=== PATIENT | male | born 2000 | race Caucasian/White ===

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

== ENCOUNTER → 2021-12-23 17:31 | Outpatient (CLI) | payer MEDICAID, SELFPAY ==
--- NOTE | 2021-12-23 | DI.RAD_ITS ---
Exam(s) XR FOOT LT COMPLETE EXAM: XR FOOT LT COMPLETE CLINICAL HISTORY: Pain in LT foot TECHNIQUE: COMPARISON: No exams were available for comparison FINDINGS: Three views were obtained. There is no evidence of acute fracture or dislocation. IMPRESSION: RADIATION DOSE DELIVERED: Total DLP
--- NOTE | 2021-12-23 18:15 | DI.VRAD_ITS ---
PROCEDURE INFORMATION: Exam: XR Left Foot Exam date and time: 12/23/2021 5:50 PM Age: 21 years old Clinical indication: Other: Left foot pain, patient dropped heavy boiler on foot TECHNIQUE: Imaging protocol: Radiologic exam of the Left foot. Views: 3 or more views. COMPARISON: No relevant prior studies available. FINDINGS: Bones/joints: No fracture or dislocation. Soft tissues: Mild soft tissue swelling over the dorsum of the foot. No soft tissue gas. No foreign body. IMPRESSION: 1. No fracture or dislocation. 2. Dorsal soft tissue swelling. No gas or foreign body. Dictated and Authenticated by: Roberto Alvarez MD. Ordering:KAMRAN Key MD
== END ==
PROVIDERS: PCP Nurse Practitioner Family; Visit Provider Physician Assistant Medical
DX: M79.672 Pain in left foot (principal)
CPT/HCPCS: 73630

== ENCOUNTER 2022-06-13 19:14 | Emergency (ER) | payer MEDICAID, SELFPAY ==
[2022-06-13 19:17] VITALS: BP 125/80; PULSE 102; RESP 20; TEMP 36.6; O2SAT 99
[2022-06-13] MEDS: Ondansetron O.D.T. 4 MG TABEF PO (19:37)
[2022-06-13 20:05] LABS: Abs Immature Grans 0.03 10^3/uL (0.0-0.06); Absolute Basophil Count 0.04 10^3/uL (0.0-0.2); Absolute Eosinophil Count 0.17 10^3/uL (0.0-0.7); Absolute Lymphocyte Count 1.12 10^3/uL (1.2-3.4); Absolute Monocyte Count 0.37 10^3/uL (0.1-0.8); Absolute Neutrophil Count 7.59 10^3/uL (1.2-6.7); Basophils % 0.4; Eosinophils % 1.8; HCT 45.9 % (40.0-50.0); Immature Grans % 0.3; MCH 31.5 pg (27.0-33.0); MCHC 34.9 % (32.0-36.0); MCV 90 fL (80-95); MPV 8.3 fL (8.0-11.0); Neutrophils % 81.5; Platelet Count 245 10^3/uL (130-400); RBC 5.08 10^6/uL (4.36-5.78); RDW 12.1 % (11.8-14.1); RDW-SD 40.1 fL; WBC 9.32 10^3/uL (4.4-10.8)
[2022-06-13 20:26] LABS: ALT 26 U/L (16-63); AST 23 U/L (15-37); Albumin 4.2 g/dL (3.4-5.0); Alkaline Phosphatase 98 U/L (46-116); Anion Gap 9.5 mmol/L (3-11); BUN 14 mg/dL (7-18); Bilirubin, Total 0.8 mg/dL (0.2-1.0); CO2 23.5 mmol/L (21.0-32.0); CREATININE 0.8 mg/dL (0.70-1.30); Calcium 9.1 mg/dL (8.5-10.1); Chloride 102 mmol/L (98-107); Estimated GFR 129.13 (mL/min/1.73m2); Glucose 93 mg/dL (74-106); Lipase 43 U/L (73-393); Potassium 3.6 mmol/L (3.5-5.1); Sodium 135 mmol/L (136-145); Total Protein 7.8 g/dL (6.4-8.2)
[2022-06-13 21:11] LABS: Bilirubin Small (Negative); Blood Negative (Negative); Clarity Cloudy (Clear); Glucose Negative (Negative); Ketones 15 mg/dL (Negative); Leukocyte Esterase Negative (Negative); Nitrite Negative (Negative)
--- NOTE | 2022-06-13 21:17 | W.ED.GENAD ---
Discharge Plan Disposition Patient Disposition: Home Condition: Good Discharge Details Clinical Impression: Epigastric pain, Gastritis Primary Care Provider: Steph Melton ED Provider: Esvin Liang Home Meds and New Rx's Prescriptions: New sucralfate [Carafate] 1 gram tablet 1 g PO BID Qty: 60 0RF Discharge Instructions Instructions: Epigastric Pain (ED) Additional Instructions: At this time your laboratory work-up has returned and is normal. Your urinalysis shows no evidence of blood to suggest kidney stone. Please take the Zofran as needed. Please take Pepto-Bismol at home as needed. A prescription for Carafate has been sent to your pharmacy on file. Please take this as directed. Please avoid any spicy foods, greasy foods, or tomato-based products, or carbonated beverages as this can cause increased irritation to your stomach. If you notice any worsening of your symptoms, or any new symptoms such as vomiting, diarrhea, fever, chills, shortness of breath, chest pain, numbness, weakness, or fainting , please return immediately to the emergency department for reevaluation. Please follow up with your primary care provider as soon as possible for reassessment and reevaluation. As always, it was a pleasure participating in your medical care today. Referrals: Steph Melton [Primary Care Provider] - Discharge Data Discharge Date/Time-TO BE ENTERED AT DEPARTURE: 06/13/22 21:47 Medical Decision Making This is a 22-year-old male with a past medical history of previous kidney stone, pilonidal cyst, who presents today for abdominal pain. At about 5 PM he developed sudden left upper quadrant abdominal pain, it was sharp stabbing and severe. On his way to the emergency department he had a few episodes of nonbilious nonbloody vomitus, and this notably improved his pain. On his time of arrival to the ED he was feeling much better. He denies any diarrhea, he denies any chest pain or shortness of breath. He denies any significant food or medication changes. No other complaints at this time. Physical exam demonstrates well-appearing male. Mild achiness in the left upper quadrant. No evidence of an acute surgical abdomen. No pain to McBurney's point, negative Allan sign. On the exam today the patient otherwise appears stable. With no evidence of right lower quadrant, right upper quadrant, or left lower quadrant tenderness I feel that CT imaging is not indicated at this time. GI cocktail was given, the patient was rehydrated, laboratory work-up demonstrates no significant white count bandemia or left shift. Electrolytes are all notably stable. Lipase is normal. Patient does admit to occasional alcohol, there may be a component of alcoholic gastritis. Urinalysis shows no evidence of infection. He does have mild ketones in his urine which is likely from dehydration, however he has no anion gap, bicarb levels are stable. Symptoms inconsistent with DKA. Blood sugar levels are normal. After rehydration and medications, patient was able to tolerate p.o. stably. We will recommend Carafate for home use, bland diet, and use of Pepto-Bismol as needed. If he still symptomatic significantly even with appropriate therapy and avoidance of spicy foods, tomato-based foods, and alcohol, and he might need a recheck or revisit. HPI General Date/Time Provider Initiated Documentation: 06/13/22 19:28. HPI Narrative: This is a 22-year-old male with a past medical history of previous kidney stone, pilonidal cyst, who presents today for abdominal pain. At about 5 PM he developed sudden left upper quadrant abdominal pain, it was sharp stabbing and severe. On his way to the emergency department he had a few episodes of nonbilious nonbloody vomitus, and this notably improved his pain. On his time of arrival to the ED he was feeling much better. He denies any diarrhea, he denies any chest pain or shortness of breath. He denies any significant food or medication changes. No other complaints at this time. Related Data Home Medications Medication Instructions Recorded Confirmed sucralfate 1 gram tablet (Carafate) 1 g PO BID #60 tabs 06/13/22 Previous Rx's Medication Instructions Recorded sucralfate 1 gram tablet (Carafate) 1 g PO BID #60 tabs 06/13/22 Allergies Allergy/AdvReac Type Severity Reaction Status Date / Time No Known Allergies Allergy Verified 06/13/22 19:23 General Stated Complaint: Nausea/Vomit/Diar SHAW: 4 Review of Systems All systems reviewed & are unremarkable except as noted in HPI and below PFSH All Active Problems Epigastric pain (Acute) Gastritis (Acute) Impacted cerumen, left ear (Acute) Crushing injury of hand, left (Acute) Sensorineural hearing loss, unilateral, left ear, with unrestricted hearing on the contralateral side (Acute) Postop check (Acute) Pilonidal cyst (Acute) Medical History Depression Drug abuse history of benzodiazapine abuse History of excessive cerumen Left-sided sensorineural hearing loss School problem Seasonal allergies Suicidal ideation Surgical History History of excision of pilonidal cyst Dr. Debbie Murillo, [facility]- 12/12/18 Family History Father Hypertension Other Heart disease Social History Smoking/Tobacco Use Status: Current-Occasional Tobacco Type: cigarettes Smoking risk assessment performed?: Yes Alcohol Intake: never Drug use: Daily Substance use type: marijuana Pets and animals: No Do you feel safe at home: Yes Do you feel safe in your relationship?: Yes Exam Narrative Exam Narrative: 1.Const: Well-nourished, Well-developed, appearing stated age 2.Eyes: PERRL, no conjunctival injection, and symmetrical lids. 3.ENT: Atraumatic external nose and ears. Moist MM. Neck: Symmetric, trachea midline, No thyromegaly. 4.CVS: +S1/S2, No murmurs or gallops. Peripheral pulses 2+ and equal in all extremities. Brisk capillary refill in all extremities. 5.RESP: Unlabored respiratory effort. Clear to auscultation bilaterally. No wheezes rales or rhonchi 6.GI: Soft, nondistended, no guarding or rebound, no evidence of an acute surgical abdomen. Mild achiness in the left upper quadrant. 7.MSK: Normocephalic/Atraumatic, Extremities w/o deformity or ttp No cyanosis or clubbing, Normal movement of all extremities 8.Skin: Warm, Dry. No rashes or lesions. 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 Sensation grossly intact, no focal neurologic deficits. 10.Psych: (AAO) x3. Appropriate mood and affect Course Vital Signs Vital signs: Vital Signs Temperature 36.6 C 06/13/22 19:17 Pulse 102 H 06/13/22 19:17 Respiratory Rate 20 06/13/22 19:17 Blood Pressure 125/80 06/13/22 19:17 Pulse Oximetry 99 06/13/22 19:17 Temperature 36.6 C 06/13/22 19:17 Temperature Source Tympanic 06/13/22 19:17 Pulse 102 H 06/13/22 19:17 Respiratory Rate 20 06/13/22 19:17 Respiratory Effort 06/13/22 20:04 Blood Pressure 125/80 06/13/22 19:17 Blood Pressure Position Sitting 06/13/22 19:17 Pulse Oximetry 99 06/13/22 19:17 Oxygen Delivery Method Room Air 06/13/22 19:17 Oxygen Flow Rate 0 06/13/22 19:17 Lab/Test Results Lab/Test Results: Laboratory Tests Range/Units 06/13/22 06/13/22 06/13/22 19:50 19:50 21:00 WBC (4.4-10.8) 10^3/uL 9.32 RBC (4.36-5.78) 10^6/uL 5.08 Hgb (13.5-17.5) g/dL 16.0 Hct (40.0-50.0) % 45.9 MCV (80-95) fL 90 MCH (27.0-33.0) pg 31.5 MCHC (32.0-36.0) % 34.9 RDW (11.8-14.1) % 12.1 Plt Count (130-400) 10^3/uL 245 MPV (8.0-11.0) fL 8.3 Immature Gran % 0.3 Neutrophils % 81.5 Lymphocytes % 12.0 Monocytes % 4.0 Eosinophils % 1.8 Basophils % 0.4 Nucleated RBC % (0.0-0.3) % 0.0 Absolute Neutrophils (1.2-6.7) 10^3/uL 7.59 H Absolute Lymphocytes (1.2-3.4) 10^3/uL 1.12 L Absolute Monocytes (0.1-0.8) 10^3/uL 0.37 Absolute Eosinophils (0.0-0.7) 10^3/uL 0.17 Absolute Basophils (0.0-0.2) 10^3/uL 0.04 Sodium (136-145) mmol/L 135 L Potassium (3.5-5.1) mmol/L 3.6 Chloride (98-107) mmol/L 102 Carbon Dioxide (21.0-32.0) mmol/L 23.5 Anion Gap (3-11) mmol/L 9.5 BUN (7-18) mg/dL 14 Creatinine (0.70-1.30) mg/dL 0.8 Est GFR (CKD-EPI 2020) (mL/min/1.73m2) 129.13 Glucose (74-106) mg/dL 93 Calcium (8.5-10.1) mg/dL 9.1 Total Bilirubin (0.2-1.0) mg/dL 0.8 AST (15-37) U/L 23 ALT (16-63) U/L 26 Alkaline Phosphatase (46-116) U/L 98 Total Protein (6.4-8.2) g/dL 7.8 Albumin (3.4-5.0) g/dL 4.2 Lipase (73-393) U/L 43 Urine Color (Yellow) Yellow Urine Clarity (Clear) Cloudy Urine pH (5-8) 7.0 Ur Specific [place] (1.005-1.025) 1.020 Urine Protein (Negative) mg/dL Negative Urine Ketones (Negative) mg/dL 15 H Urine Blood (Negative) Negative Urine Nitrite (Negative) Negative Urine Bilirubin (Negative) Small H Urine Urobilinogen (Up TO 0.2) EU/dL 2.0 H Ur Leukocyte Esterase (Negative) Negative Urine Glucose (Negative) mg/dL Negative
[2022-06-13] MEDS: Normal Saline 1,000 ML 1000 ML IV (21:22)
[2022-06-13 21:35] VITALS: BP 116/69; PULSE 87; RESP 16; TEMP 36; O2SAT 100
[2022-06-13] MEDS: Ondansetron O.D.T. 4 MG TABEF, 3 TABS/BTL PO (21:38)
== END 2022-06-13 21:47 | disposition home or self-care (01) ==
PROVIDERS: Emergency Provider Student in an Organized Health Care Education/Training Program; PCP Nurse Practitioner Family
DX: K29.70 Gastritis, unspecified, without bleeding (principal); Z87.442 Personal history of urinary calculi
CPT/HCPCS: 80053; 83690; 99284; 81003; 85025

== ENCOUNTER 2023-07-20 07:13 | Emergency (ER) | payer MEDICAID, SELFPAY ==
[2023-07-20 07:16] VITALS: BP 123/57; PULSE 79; RESP 18; TEMP 36.2; O2SAT 98
--- NOTE | 2023-07-20 07:24 | W.ED.GENAD ---
Discharge Plan Disposition Patient Disposition: Home Discharge Details Clinical Impression: Abdominal pain Primary Care Provider: Steph Melton ED Provider: Ashish Metcalf Home Meds and New Rx's Prescriptions: New famotidine 40 mg tablet 40 mg PO DAILY Qty: 14 0RF sucralfate [Carafate] 1 gram tablet 1 g PO BID Qty: 7 0RF ondansetron 4 mg tablet,disintegrating 4 mg PO BID 5 Days Qty: 10 0RF Discharge Instructions Instructions: Abdominal Pain (ED) Additional Instructions: You are seen in the emergency department for your abdominal pain. Your lab work was reassuring as your kidneys were working well and you had no sign of pancreatitis. Your blood work showed no sign of urinary tract infection or any signs of any blood in your urine. Your ultrasound showed no sign of any kidney stones. As we discussed if you develop fevers cannot eat or drink as result of nausea or vomiting or if you have any other concerns please return to the emergency department. Otherwise please follow-up with your primary care provider next week as needed. Stand Alone Forms: Work Release Discharge Data Discharge Date/Time-TO BE ENTERED AT DEPARTURE: 07/20/23 10:00 HPI General Date/Time Provider Initiated Documentation: 07/20/23 07:24. HPI Narrative: MDM This is an overall very well-appearing afebrile and not tachycardic 23-year-old male in the emergency department with left flank pain reassuring against ureterolithiasis based on bedside ultrasound. No pain out of proportion to suggest necrotizing soft tissue infection. Patient does have some mild bruising to his left lower quadrant and reports that he felt last week after drinking. He has a reassuring shock index and a negative FAST exam so I am not concerned for intra-abdominal trauma based on the duration of time since his fall. No dysuria nor frequency to suggest UTI. No fevers to suggest pyelonephritis. Will obtain urinalysis to assess for ureterolithiasis. Patient has been vomiting so we will obtain labs to ensure that he is not markedly hypokalemic. He is not an alcoholic to suggest increased risk for withdrawal. No tenderness over McBurney's point nor any fevers to suggest appendicitis. Based on his age my suspicion is low for diverticulitis. No chest pain to suggest ACS. Will obtain a lipase to assess for pancreatitis given history of ethanol use occasionally. Patient has no vascular risk factors to suggest increased risk for splenic arterial aneurysm. No right upper quadrant tenderness to suggest acute cholecystitis. No fevers nor personal nor family history of inflammatory bowel disease so doubt Crohn's and ulcerative colitis. No cough to suggest pneumonia. I considered referred pain from PE however patient is PERC negative so I did not send a D-dimer. Patient is not immunocompromise to suggest increased risk for opportunistic infection. Patient has not recently traveled to suggest increased risk for atypical infection. Given no past abdominal surgeries to abdomen my suspicion is exceedingly low for small bowel obstruction. No rash to abdomen to suggest zoster. No crepitance nor forceful emesis to suggest increased risk for esophageal rupture. 9:20 AM CBC lacks anemia thrombocytopenia and leukocytosis. Comprehensive metabolic panel showing no DOLLY. No significant LFT abnormalities. Mild anion gap but normal bicarbonate and no hyperglycemia??not consistent with DKA. Lipase not consistent with pancreatitis. Patient felt improved. It certainly could be that his symptoms represent an ulcer so we will discharge him with Carafate and famotidine if his urinalysis is reassuring. 9:34 AM Urinalysis nitrite negative not consistent with UTI. No hematuria not consistent with ureteral lithiasis. Patient does have some proteinuria which he has had in the past and mild ketonuria likely secondary to starvation ketosis. Patient requested a work note. I advise primary care follow-up next week and ED return for fevers inability tolerate p.o. or any worsening pain. Patient understood his return indications and was discharged with an empiric trial of expectant outpatient management. 6pm Repeat vitals at az reassuring. Chronic conditions affecting the care of the patient: Sensorineural hearing loss History obtained from an outside historian: N/A External record review: [facility] [place] Medications: Fentanyl famotidine normal saline Social determinants of health affecting disposition: N/A Management discussed with: N/A Treatment/interventions considered: N/A Response to therapies provided: Improved symptoms in the ED HPI This is a 23-year-old male arrived to the emergency department via private vehicle in the setting of abdominal pain for the past 5 days. Patient reports that for 2 days she had diarrhea and subsequently had constipation. He says that he primarily has upper abdominal pain that radiates into his left flank. He says that he has a history of ureterolithiasis although his pain is not as significant as prior episodes of ureterolithiasis. He denies hematuria dysuria frequency. No reported blood per rectum. No melena. No fevers. No chest pain nor shortness of breath. Patient is a daily tobacco user occasionally drinks ethanol and smokes marijuana. He works at [employer]. He is never had any surgeries to his abdomen. Exam General: Well-appearing in no acute distress speaking in complete sentences. Head: Normocephalic, atraumatic. Eye: Extraocular eye movements intact. No conjunctival injection. No scleral icterus. Ear, nose, mouth, throat: Grossly normal inspection. Normal voice, handling secretions normally. Neck: Trachea midline. Cardiovascular: Well-perfused distal extremities. Regular rate and rhythm. Respiratory: Nonlabored respiration. Clear lungs bilaterally. Gastrointestinal: Nondistended abdomen. Soft nontender. No rebound. No guarding. Left lower quadrant with approximately 3 x 1 cm bruise nontender. No bilateral CVA tenderness. No rash to abdomen. Musculoskeletal: No edema. Moving all 4 extremities spontaneously. Skin: Normal for age and race, grossly normal temperature and turgor. No acute rash. Neurologic: Alert and appropriate, no apparent acute deficits. Psychiatric: Mood and manner are appropriate. Grooming and personal hygiene are appropriate. Related Data Home Medications Medication Instructions Recorded Confirmed famotidine 40 mg tablet 40 mg PO DAILY #14 tabs 07/20/23 ondansetron 4 mg disintegrating 4 mg PO BID 5 days #10 tabs 07/20/23 tablet sucralfate 1 gram tablet (Carafate) 1 g PO BID #7 tabs 07/20/23 Previous Rx's Medication Instructions Recorded famotidine 40 mg tablet 40 mg PO DAILY #14 tabs 07/20/23 ondansetron 4 mg disintegrating 4 mg PO BID 5 days #10 tabs 07/20/23 tablet sucralfate 1 gram tablet (Carafate) 1 g PO BID #7 tabs 07/20/23 Allergies Allergy/AdvReac Type Severity Reaction Status Date / Time No Known Allergies Allergy Verified 07/20/23 08:27 General Stated Complaint: Abd Prob SHAW: 3 Course Vital Signs Vital signs: Vital Signs Temperature 36.2 C L 07/20/23 07:16 Pulse 79 07/20/23 07:16 Respiratory Rate 18 07/20/23 07:16 Blood Pressure 123/57 L 07/20/23 07:16 Pulse Oximetry 98 07/20/23 07:16 Temperature 36.2 C L 07/20/23 07:16 Temperature Source Temporal Artery Scan 07/20/23 07:16 Pulse 79 07/20/23 07:16 Respiratory Rate 18 07/20/23 07:16 Respiratory Effort Normal, Non-Labored 07/20/23 07:20 Blood Pressure 123/57 L 07/20/23 07:16 Blood Pressure Position Sitting 07/20/23 07:16 Pulse Oximetry 98 07/20/23 07:16 Oxygen Delivery Method Room Air 07/20/23 07:16 Oxygen Flow Rate 0 07/20/23 07:16 Medical Decision Making Quality:SDOH Health Related Social Needs: No Data to Display PFSH All Active Problems (Updated 07/20/23 @ 09:27 by Ashish Metcalf MD) Abdominal pain (Acute) Impacted cerumen, left ear (Acute) Crushing injury of hand, left (Acute) Sensorineural hearing loss, unilateral, left ear, with unrestricted hearing on the contralateral side (Acute) Postop check (Acute) Pilonidal cyst (Acute) Medical History Depression Drug abuse history of benzodiazapine abuse History of excessive cerumen Left-sided sensorineural hearing loss School problem Seasonal allergies Suicidal ideation Surgical History History of excision of pilonidal cyst Dr. Debbie Murillo, [facility]- 12/12/18 Family History Father Hypertension Other Heart disease Social History Smoking/Tobacco Use Status: Current-Occasional Tobacco Type: cigarettes Smoking risk assessment performed?: Yes Alcohol Intake: current Alcohol Intake frequency: a few times a week Alcohol type: beer Drug use: Daily Substance use type: marijuana Pets and animals: No Do you feel safe at home: Yes Do you feel safe in your relationship?: Yes PAWSS Have you Been Recently Intoxicated or Drunk Within the Last 30 days?: No Have you Ever Experienced Previous Episodes of Alcohol Withdrawal?: No Have you ever Experienced Withdrawal Seizures?: No Have you ever Experienced Delirium Tremens(DT)s?: No Have you ever undergone Alcohol Rehabilitation Treatment (i.e, inpt ot outpatient treatment programs)?: No Have you ever Experienced Blackouts?: No Have you ever Combined Alcohol with other Downers within the last 90 days?: No Have you ever Combined Alcohol with any other Substance of Abuse during the last 90 days?: No Positive Blood Alcohol level on Presentation? [PCS.BAL]: No Evidence of Increased Autonomic Activity (i.e. HR>120, tremor, sweating, agitation, nausea)?: No Result: 0 POCUS Exam (ED) FAST Exam DATE OF EXAM: 07/20/23 TIME OF EXAM: 08:10 PROVIDER THAT PERFORMED THE STUDY: Ashish Metcalf IS THIS A REPEAT EXAM DURING THIS ENCOUNTER: no REASON FOR EXAM: Abdominal pain VISUALIZED STRUCTURES: Hepatorenal space, Pelvis, Pericardium and Perisplenic space PERTINENT FINDINGS/IMPRESSION: no apparent abnormalities; no apparent free fluid and no pericardial effusion DIFFERENTIAL DIAGNOSES: Negative FAST exam Limited Transthoracic Exam: Exam complete Limited Chest Exam: Exam complete Limited Abdominal Exam: Exam complete Limited Retroperitoneal Exam: Exam complete Limited Retroperitoneal(Renal)Exam DATE OF EXAM: 07/20/23 TIME OF EXAM: 08:11 PROVIDER THAT PERFORMED THE STUDY: Ashish Metcalf IS THIS A REPEAT EXAM DURING THIS ENCOUNTER: No REASON FOR EXAM: Abdominal trauma VISUALIZED STRUCTURES: Left kidney, Right kidney and Other structures: Bladder PERTINENT FINDINGS/IMPRESSION: no hydronephrosis present INCIDENTAL FINDINGS: No hydronephrosis bilaterally Exam complete
[2023-07-20] MEDS: fentaNYL 100 MCG/2 ML VIAL 50 MCG IVP (08:16)
[2023-07-20] MEDS: Famotidine 20 MG/2 ML VIAL 40 MG IVP (08:17)
[2023-07-20] MEDS: Normal Saline 1,000 ML 1000 ML IV (08:24)
[2023-07-20 08:26] VITALS: BP 128/68; PULSE 60; TEMP 37.5; O2SAT 98
[2023-07-20 08:51] LABS: Abs Immature Grans 0.02 10^3/uL (0.0-0.06); Absolute Basophil Count 0.03 10^3/uL (0.0-0.2); Absolute Lymphocyte Count 1.51 10^3/uL (1.2-3.4); Absolute Monocyte Count 0.86 10^3/uL (0.1-0.8); Basophils % 0.3; Eosinophils % 4.3; HCT 46.4 % (40.0-50.0); Immature Grans % 0.2; Lymphocytes % 16.4; MCH 30.6 pg (27.0-33.0); MCHC 34.5 % (32.0-36.0); MCV 89 fL (80-95); MPV 8.5 fL (8.0-11.0); Monocytes % 9.3; Neutrophils % 69.5; Platelet Count 242 10^3/uL (130-400); RBC 5.23 10^6/uL (4.36-5.78); RDW 12.4 % (11.8-14.1); RDW-SD 40.5 fL; WBC 9.22 10^3/uL (4.4-10.8)
[2023-07-20 09:06] LABS: ALT 15 U/L (16-63); AST 19 U/L (15-37); Albumin 3.8 g/dL (3.4-5.0); Alkaline Phosphatase 87 U/L (46-116); Anion Gap 12.1 mmol/L (3-11); BUN 11 mg/dL (7-18); Bilirubin, Total 0.6 mg/dL (0.2-1.0); CO2 24.9 mmol/L (21.0-32.0); CREATININE 0.8 mg/dL (0.70-1.30); Calcium 8.7 mg/dL (8.5-10.1); Chloride 101 mmol/L (98-107); Estimated GFR 128.33 (mL/min/1.73m2); Glucose 99 mg/dL (74-106); Lipase 15 U/L (16-77); Potassium 3.7 mmol/L (3.5-5.1); Sodium 138 mmol/L (136-145); Total Protein 7.6 g/dL (6.4-8.2)
[2023-07-20 09:22] LABS: Bilirubin Small (Negative); Blood Negative (Negative); Clarity Sl Cloudy (Clear); Glucose Negative (Negative); Ketones 40 mg/dL (Negative); Leukocyte Esterase Negative (Negative); Nitrite Negative (Negative); Specific Gravity 1.015 (1.005-1.025); pH 8.5 (5-8)
[2023-07-20 09:28] LABS: Bacteria Rare HPF (Negative); Casts Negative LPF (Negative); Crystals Negative HPF (Negative); Epithelial Cells Rare HPF (Negative); Mucus Heavy (Negative); RBC 0-2 HPF (0-2); WBC 0-2 HPF (0-5)
[2023-07-20 09:29] LABS: C & S Indicated? No
[2023-07-20] MEDS: Acetaminophen 500 MG TAB 1000 MG PO (09:54)
[2023-07-20] MEDS: Ibuprofen 600 MG TAB PO (09:55)
[2023-07-20 09:58] VITALS: BP 128/60; PULSE 78; RESP 24; TEMP 36.8
== END 2023-07-20 10:00 | disposition home or self-care (01) ==
LOC: ER 09:44
PROVIDERS: Emergency Provider Emergency Medicine; PCP Nurse Practitioner Family
DX: R10.10 Upper abdominal pain, unspecified (principal); R19.7 Diarrhea, unspecified; F17.210 Nicotine dependence, cigarettes, uncomplicated
CPT/HCPCS: 76604; 76705; 76775; 76857; 80053; 83690; 96361; 96374; 96375; 99284; 81003; 81015; 85025; J3010

== ENCOUNTER 2023-11-20 19:31 | Emergency (ER) | payer MEDICAID, SELFPAY ==
[2023-11-20 19:39] VITALS: BP 148/82; PULSE 110; RESP 16; TEMP 36.9; O2SAT 100
--- NOTE | 2023-11-20 20:52 | DI.RAD_ITS ---
Exam(s) XR FOOT RT COMPLETE EXAM: XR FOOT RT COMPLETE CLINICAL HISTORY: midfoot pain after kicking dumpster. TECHNIQUE: 2D digital imaging was performed. Three views. COMPARISON: CR,XR XR FOOT LT COMPLETE from 12/23/2021 FINDINGS: BONES: No acute fracture is present. No bony destructive lesion is seen. JOINTS: No dislocation present. SOFT TISSUE: Normal. IMPRESSION: Unremarkable radiographs of the right foot. DATA REPOSITORY: RADIATION DOSE DELIVERED:
[2023-11-20] MEDS: Acetaminophen 500 MG TAB 1000 MG PO (21:27)
[2023-11-20] MEDS: Ibuprofen 600 MG TAB PO (21:27)
--- NOTE | 2023-11-20 21:30 | DI.CT_ITS ---
Exam(s) CT LOWER EXTREMITY RT WO EXAM: CT LOWER EXTREMITY RT WO CLINICAL HISTORY: Right midfoot pain. TECHNIQUE: Imaging Protocol: Axial computed tomography images with coronal and sagittal reformatted images were created and reviewed. CONTRAST MATERIAL: Noncontrast COMPARISON: CR,XR XR FOOT RT COMPLETE from 11/20/2023 FINDINGS: Bones: There is no evidence of fracture or dislocation. No cellulitic or osteomyelitic changes are identified. No lytic or sclerotic lesions are identified. Joints: Normal alignment. There is no significant joint space narrowing. No significant periarticul ar spurring. Soft Tissues: Normal. Tendons grossly intact. IMPRESSION: Negative CT of the right foot. RADIATION DOSE DELIVERED: 232.63mGy.cm Total DLP DATA REPOSITORY: All CT scans at this facility are submitted to the National Radiology Data Registry (NRDR) Dose Index Registry (DIR) with the [employer] (A[employer]). RADIATION OPTIMIZATION: All CT scans at this facility use at least one of these dose optimization te chniques: automated exposure control; mA and/or kV adjustment per patient size (includes targeted exa ms where dose is matched to clinical indication); or iterative reconstruction.
--- NOTE | 2023-11-20 21:41 | DI.VRAD_ITS ---
PROCEDURE INFORMATION: Exam: XR Right Foot Exam date and time: 11/20/2023 8:47 PM Age: 23 years old Clinical indication: Other: Midfoot pain after kicking dumpster TECHNIQUE: Imaging protocol: Radiologic exam of the right foot. Views: 3 or more views. COMPARISON: No relevant prior studies available. FINDINGS: Bones/joints: Normal. Soft tissues: Normal. IMPRESSION: No evidence for fracture. Dictated and Authenticated by: Alena Pepe MD. Ordering:JANNA Fontana MD
--- NOTE | 2023-11-20 22:18 | DI.VRAD_ITS ---
PROCEDURE INFORMATION: Exam: CT Right Lower Extremity Without Contrast, Foot Exam date and time: 11/20/2023 9:54 PM Age: 23 years old Clinical indication: Injury or trauma; Other: Kicked a dumpster; Blunt trauma; Injury date: 11/20/23; Injury details: Right midfoot pain TECHNIQUE: Imaging protocol: CT of the right lower extremity without contrast was performed. Exam focused on the foot. Radiation optimization: All CT scans at this facility use at least one of these dose optimization techniques: automated exposure control; mA and/or kV adjustment per patient size (includes targeted exams where dose is matched to clinical indication); or iterative reconstruction. COMPARISON: CR XR FOOT RT COMPLETE 11/20/2023 8:47 PM FINDINGS: Bones/joints: Normal. No acute fracture or dislocation. Soft tissues: Normal. IMPRESSION: No evidence for fracture. Dictated and Authenticated by: Alena Pepe MD. Ordering:MENDY Hinojosa MD
--- NOTE | 2023-11-20 22:27 | W.ED.GENAD ---
Discharge Plan Disposition Patient Disposition: Home Discharge Details Clinical Impression: Acute pain of right foot Primary Care Provider: Steph Melton ED Provider: Ashish Metcalf Home Meds and New Rx's Prescriptions: Continued famotidine 40 mg tablet 40 mg PO DAILY Qty: 14 0RF sucralfate [Carafate] 1 gram tablet 1 g PO BID Qty: 7 0RF Discharge Instructions Additional Instructions: You were seen in the emergency department for your foot pain. Your x-ray and CAT scan showed no sign of any fractures. Please return to the emergency department if you develop worsening pain or cannot move your foot. Otherwise please follow-up with your primary care provider. For your pain please take medications as follows: 1. Take acetaminophen (Tylenol), 1,000 mg (two 500 mg tabs) every 6 hours [2. Take ibuprofen (Advil), 400 mg every 6 hours.] HPI General Date/Time Provider Initiated Documentation: 11/20/23 19:59. HPI Narrative: MDM Primary survey intact. Reassuring shock index. On secondary survey patient has pain in his right midfoot. No midfoot instability to suggest Lisfranc injury. No right lateral foot pain to suggest Bailey fracture. No calcaneal tenderness to suggest calcaneal fracture. Foot warm well-perfused so not concern for critical limb ischemia. No pain out of proportion to suggest necrotizing soft tissue infection. Good range of motion in ankle so not concern for septic joint. I initially obtained a CT which was negative for any acute osseous abnormalities. Given the patient's tenderness I obtained a CT scan which was reassuring. Patient received ibuprofen and acetaminophen and morphine in the emergency department. 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 I advised ED return for worsening pain swelling or any numbness or tingling in his foot. He understood his return indications and was discharged with an empiric trial of expectant outpatient management. Repeat heart rate was 68 bpm. Blood pressure normalized with oral analgesia. HPI This is a previously healthy 23-year-old male arrived to the emergency department via private vehicle in setting of right foot pain. Patient reports that he recently broke up with his girlfriend. He was feeling frustrated and kicked a dumpster. He does not feel suicidal. He had difficulty bearing weight on his foot since his injury. He received all his immunizations during childhood. He denies any other injuries. Exam General: Well-appearing in no acute distress speaking in complete sentences. Head: Normocephalic, atraumatic. Eye: Extraocular eye movements intact. No conjunctival injection. No scleral icterus. Ear, nose, mouth, throat: Grossly normal inspection. Normal voice, handling secretions normally. Neck: Trachea midline. Cardiovascular: Well-perfused distal extremities. Respiratory: Nonlabored respiration. Gastrointestinal: Nondistended abdomen. Musculoskeletal: Right foot with no obvious deformities no lacerations. Right foot warm well-perfused 2+ PT and DP pulses. Sensation motor function intact in the right foot. Mild limitations in dorsi and plantarflexion secondary to pain. No midfoot instability. No right lateral foot tenderness. Pain is primarily located midfoot. No calcaneal tenderness. No ecchymoses. No ankle tenderness. Skin: Normal for age and race, grossly normal temperature and turgor. No acute rash. Neurologic: Alert and appropriate, no apparent acute deficits. Psychiatric: Mood and manner are appropriate. Grooming and personal hygiene are appropriate. Related Data Home Medications Medication Instructions Recorded Confirmed famotidine 40 mg tablet 40 mg PO DAILY #14 tabs 07/20/23 11/20/23 sucralfate 1 gram tablet (Carafate) 1 g PO BID #7 tabs 07/20/23 11/20/23 Previous Rx's Medication Instructions Recorded famotidine 40 mg tablet 40 mg PO DAILY #14 tabs 07/20/23 sucralfate 1 gram tablet (Carafate) 1 g PO BID #7 tabs 07/20/23 Allergies Allergy/AdvReac Type Severity Reaction Status Date / Time No Known Allergies Allergy Verified 07/20/23 08:27 General Stated Complaint: Orthopedic SHAW: 4 Course Vital Signs Vital signs: Vital Signs Temperature 36.9 C 11/20/23 19:39 Pulse 110 H 11/20/23 19:39 Respiratory Rate 16 11/20/23 19:39 Blood Pressure 148/82 H 11/20/23 19:39 Pulse Oximetry 100 11/20/23 19:39 Temperature 36.9 C 11/20/23 19:39 Pulse 110 H 11/20/23 19:39 Respiratory Rate 16 11/20/23 19:39 Blood Pressure 148/82 H 11/20/23 19:39 Pulse Oximetry 100 11/20/23 19:39 Pain Level 9 11/20/23 19:39 Medical Decision Making Quality:SDOH Health Related Social Needs: No Data to Display PFSH All Active Problems (Updated 11/20/23 @ 22:28 by Ashish Metcalf MD) Acute pain of right foot (Acute) Impacted cerumen, left ear (Acute) Crushing injury of hand, left (Acute) Sensorineural hearing loss, unilateral, left ear, with unrestricted hearing on the contralateral side (Acute) Postop check (Acute) Pilonidal cyst (Acute) Medical History Depression Drug abuse history of benzodiazapine abuse History of excessive cerumen Left-sided sensorineural hearing loss School problem Seasonal allergies Suicidal ideation Surgical History History of excision of pilonidal cyst Dr. Debbie Murillo, [facility]- 12/12/18 Family History Father Hypertension Other Heart disease Social History Smoking/Tobacco Use Status: Current-Occasional Tobacco Type: cigarettes Smoking risk assessment performed?: Yes Alcohol Intake: current Alcohol Intake frequency: a few times a week Alcohol type: beer Drug use: Daily Substance use type: marijuana Pets and animals: No Do you feel safe at home: Yes Do you feel safe in your relationship?: Yes
[2023-11-20 22:31] VITALS: BP 120/81; PULSE 64
== END 2023-11-20 22:38 | disposition home or self-care (01) ==
PROVIDERS: Emergency Provider Emergency Medicine; PCP Nurse Practitioner Family
DX: M79.671 Pain in right foot (principal); W22.8XXA Striking against or struck by other objects, initial encounter
CPT/HCPCS: 99284; 73630; 73700; 99283